=== PATIENT | female | born 1935 | race Caucasian/White ===

== ENCOUNTER → 2016-06-21 | Outpatient (CLI) | payer MEDICARE, OTHER | LOC: RAD 08:28 | PROVIDERS: ATTEND Internal Medicine Geriatric Medicine | DX: R10.9 Unspecified abdominal pain (principal) | CPT/HCPCS: 74177; 82565 ==

== ENCOUNTER 2016-08-21 20:13 | Emergency (ER) | payer MEDICARE, OTHER ==
[2016-08-21] MEDS ORDERED: ONDANSETRON HCL INJ/PF 4 MG/2 ML SDV IV ONE (20:38)
--- NOTE | 2016-08-21 20:38 | ER Document Report ---
ED Cardiac - General Mode of Arrival: Medic Information source: Patient TRAVEL OUTSIDE OF THE [place] IN LAST 30 DAYS: No - HPI Patient complains to provider of: Palpitations Associated symptoms: Other - See above <MENDOZA DEVINE - Last Filed: 08/21/16 21:53> <MARIETTA RAMIREZ - Last Filed: 08/23/16 21:11> - General Chief Complaint: Palpitations Stated Complaint: palpitation Notes: Patient is an 81 year old female, with a past medical history including A-fib, who presents to the emergency department complaining of palpitations onset around 1400 this afternoon. Patient reports the episode felt as though her heart was racing and she has since recovered, patient is unsure if this was an episode of her A-fib. Patient also reports having fallen a week ago and saw a PCP 3 days ago for back pain and nausea, patient was told that she had some blood in her urine and was prescribed antibiotics and anti-nausea medication which she has yet to steel pickler from the pharmacy. Patient still complains of nausea and some back pain on her right side. Patient states it does not feel like a UTI or kidney stone which she has had in the past. Patient reports she has fallen 5-6x recently due to chronic balance issues. Patient is currently taking Cardizem and Eliquis, she does not recall her other medications. (MENDOZA DEVINE) - Related Data Allergies/Adverse Reactions: No Known Allergies Allergy (Verified 08/21/16 22:11) Past Medical History - General Information source: Patient - Social History Smoking Status: Unknown if Ever Smoked Family History: Reviewed & Not Pertinent, Other - Heart disease - Past Medical History Cardiac Medical History: Reports: Hx Atrial Fibrillation Endocrine Medical History: Reports: Hx Diabetes Mellitus Type 2 Malignancy Medical History: Reports: Hx Lung Cancer Psychiatric Medical History: Reports: Hx Depression Past Surgical History: Reports: Hx Hysterectomy, Other - Left lobectomy - Immunizations Hx Diphtheria, Pertussis, Tetanus Vaccination: No <MENDOZA DEVINE - Last Filed: 08/21/16 21:53> Review of Systems - Review of Systems Constitutional: No symptoms reported EENT: No symptoms reported Cardiovascular: See HPI, Palpitations, Heart racing Respiratory: No symptoms reported Gastrointestinal: See HPI, Nausea, Vomiting. denies: Abdominal pain, Diarrhea Genitourinary: No symptoms reported Female Genitourinary: No symptoms reported Musculoskeletal: See HPI, Back pain Skin: No symptoms reported Hematologic/Lymphatic: No symptoms reported Neurological/Psychological: No symptoms reported -: Yes All other systems reviewed and negative <MENDOZA DEVINE - Last Filed: 08/21/16 21:53> Physical Exam - Vital signs Interpretation: Normal - General General appearance: Appears well, Alert - HEENT Head: Normocephalic, Atraumatic - Respiratory Respiratory status: No respiratory distress Chest status: Nontender Breath sounds: Normal Chest palpation: Normal - Cardiovascular Rhythm: Regular Heart sounds: Normal auscultation Murmur: No - Abdominal Inspection: Normal Distension: No distension Bowel sounds: Normal Tenderness: Nontender Organomegaly: No organomegaly - Back Back: Other - right side over posterior ribs mildly tender to palpation - Extremities General upper extremity: Normal inspection General lower extremity: Normal inspection - Neurological Neuro grossly intact: Yes Cognition: Normal Orientation: AAOx4 [place] Coma Scale Eye Opening: Spontaneous [place] Coma Scale Verbal: Oriented [place] Coma Scale Motor: Obeys Commands Abby Coma Scale Total: 15 Speech: Normal - Psychological Associated symptoms: Normal affect, Normal mood - Skin Skin Temperature: Warm Skin Moisture: Dry Skin Color: Normal <MENDOZA DEVINE - Last Filed: 08/21/16 21:53> Course - Laboratory Result Diagrams: 08/21/16 20:30 08/21/16 20:30 <MENDOZA DEVINE - Last Filed: 08/21/16 21:53> - Laboratory Result Diagrams: 08/21/16 20:30 08/21/16 20:30 <MARIETTA RAMIREZ - Last Filed: 08/23/16 21:11> - Re-evaluation Re-evalutation: 08/21/16 20:39 Patient presents emergency Department chief complaint of elevated heart rate earlier nausea vomiting and right rib pain. Says she is visiting from out of town is due to go home in 2 weeks. 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 Patient also states she has a history of losing her balance repeatedly for the last several years and falls frequently. Said she fell a week ago right-sided in the cupboard and on palpation and is complaining of right posterior rib pain. She saw a primary care physician 3 days ago they told her there was blood in her urine started her on antibiotic which she hasn't gotten filled and said that was the cause of her nausea vomiting and back pain on examination she is well- appearing nontoxic afebrile no acute distress she is not currently in A. fib. Belly is soft no acute guarding rebound rigidity 08/21/16 23:06 Patient has been well-appearing nontoxic in no acute distress stable not A. fib on the monitor shake Urine says a trace amount of leukocyte Estrace when and give her a shot of Rocephin otherwise she is clinically stable no acute medical emergencies will be discharged home to get her antibiotic filled tomorrow that was prescribed for her urinary tract infection follow primary care physician in 2-3 days and discussed reasons for ED return sooner 08/21/16 23:10 (MARIETTA RAMIREZ) - Vital Signs Vital signs: Temp Pulse Resp BP Pulse Ox 97.7 F 66 16 140/47 H 96 08/21/16 23:25 08/21/16 23:25 08/21/16 23:25 08/21/16 23:25 08/21/16 23:25 - Laboratory Laboratory results interpreted by me: 08/21/16 08/21/16 08/21/16 20:30 20:30 22:00 RDW 14.5 H Glucose 123 H Urine Ketones TRACE H Urine Blood SMALL H Urine Urobilinogen 4.0 H Ur Leukocyte Esterase TRACE H - EKG Interpretation by Me Additional EKG results interpreted by me: 08/22/16 03:27 EKG interpreted by myself to reveal a sinus rhythm at 77 bpm with no acute ST segment elevation or depression (MARIETTA RAMIREZ) Discharge <MENDOZA DEVINE - Last Filed: 08/21/16 21:53> <MARIETTA RAMIREZ - Last Filed: 08/23/16 21:11> - Discharge Clinical Impression: Palpitations UTI (urinary tract infection) Qualifiers: Urinary tract infection type: acute cystitis Hematuria presence: with hematuria Qualified Code(s): N30.01 - Acute cystitis with hematuria Condition: Stable Disposition: HOME, SELF-CARE Instructions: Urinary Tract Infection ([facility]), Palpitations (Irregular or Rapid Heartrate) ([facility]) Referrals: MARC STOVALL MD [Primary Care Provider] - Follow up in 3-5 days (In 2-3 days return for increasing worsening or new symptoms) Scribe Attestation: 08/23/16 21:10 i personally performed the services described in the documentation, reviewed the documentation recorded by the scribe in my presence and it accurately and completely records my words and actions (MARIETTA RAMIREZ) Scribe Documentation - Scribe Written by Scrpatience:: sudha Gracia, 08/21/16, [id number] acting as scribe for :: Elver <MENDOZA DEVINE - Last Filed: 08/21/16 21:53>
[2016-08-21 20:44] LABS: ABSOLUTE BASOPHILS # (AUTO) 0.1 10^3/uL (0.0-0.2); ABSOLUTE EOSINOPHILS # (AUTO) 0.1 10^3/uL (0.0-0.6); ABSOLUTE LYMPHOCYTES (AUTO) 1.6 10^3/uL (0.5-4.7); ABSOLUTE MONOCYTES (AUTO) 0.8 10^3/uL (0.1-1.4); ABSOLUTE NEUT (AUTO) 4.3 10^3/uL (1.7-8.2); BASOPHILS % (AUTO) 0.9 % (0-2); EOSINOPHILS % (AUTO) 2.1 % (0-6); HEMATOCRIT 36.6 % (36.0-47.0); HEMOGLOBIN 12.5 g/dL (12.0-15.5); HGB HCT DIFFERENCE 0.9; LYMPHOCYTES % (AUTO) 22.9 % (13-45); MEAN CORPUSCULAR HEMOGLOBIN 29.4 pg (27.0-33.4); MEAN CORPUSCULAR VOLUME 86 fl (80-97); MONOCYTES % (AUTO) 11.6 % (3-13); RED BLOOD COUNT 4.24 10^6/uL (3.72-5.28); RED CELL DISTRIBUTION WIDTH 14.5 % (11.5-14.0); SEGMENTED NEUTROPHILS % (AUTO) 62.5 % (42-78); WHITE BLOOD COUNT 6.8 10^3/uL (4.0-10.5)
[2016-08-21 20:55] LABS: ALANINE AMINOTRANSFERASE 25 U/L (9-52); ALBUMIN 4.1 g/dL (3.5-5.0); ALKALINE PHOSPHATASE 71 U/L (38-126); ANION GAP 14 (5-19); ASPARTATE AMINO TRANSFERASE 19 U/L (14-36); BILIRUBIN,DIRECT 0.3 mg/dL (0.0-0.4); BILIRUBIN,TOTAL 0.7 mg/dL (0.2-1.3); BLOOD UREA NITROGEN 14 mg/dL (7-20); CALCIUM 9.7 mg/dL (8.4-10.2); CARBON DIOXIDE 27 mmol/L (22-30); CHLORIDE 102 mmol/L (98-107); CREATINE KINASE 32 U/L (30-135); CREATININE RESULT 0.68 mg/dL (0.52-1.25); GLUCOSE 123 mg/dL (75-110); LIPASE 122.4 U/L (23-300); SODIUM 142.9 mmol/L (137-145); TOTAL PROTEIN 7.3 g/dL (6.3-8.2)
[2016-08-21 21:10] LABS: TROPONIN I < 0.012 ng/mL
[2016-08-21 22:56] LABS: APPEARANCE,URINE CLEAR; BILIRUBIN,URINE NEGATIVE (NEGATIVE); GLUCOSE, URINE NEGATIVE (NEGATIVE); KETONES,URINE TRACE mg/dL (NEGATIVE); LEUKOCYTE ESTERASE,URINE TRACE (NEGATIVE); NITRITE,URINE NEGATIVE (NEGATIVE); PROTEIN,URINE NEGATIVE (NEGATIVE); URINE SPECIFIC GRAVITY 1.018
[2016-08-21] MEDS ORDERED: CEFTRIAXONE INJ 1000 MG VIAL IM ONE (23:05)
[2016-08-21 23:38] VITALS: BP 140/47
--- NOTE | 2016-08-22 08:41 | EKG REPORT ---
SEVERITY:- NORMAL ECG - SINUS RHYTHM : Confirmed by: Josue Rollins 22-Aug-2016 08:40:51
== END 2016-08-21 23:30 | disposition home or self-care (01) ==
LOC: ER 20:13
DX: R00.2 Palpitations (principal); N30.01 Acute cystitis with hematuria; R07.81 Pleurodynia; W19.XXXA Unspecified fall, initial encounter; I48.91 Unspecified atrial fibrillation; E11.9 Type 2 diabetes mellitus without complications; M54.9 Dorsalgia, unspecified; R11.2 Nausea with vomiting, unspecified; R29.6 Repeated falls; Z87.442 Personal history of urinary calculi; Z79.899 Other long term (current) drug therapy; Z79.01 Long term (current) use of anticoagulants; Z82.49 Family history of ischemic heart disease and other diseases of the circulatory system
CPT/HCPCS: 93005; 99285; 96372; 96374; 36415; 82550; 83690; 85025; 80053; 81001; 84484; 83880; 71101; 72070; 93010; J0696; J2405